=== PATIENT | female | born 1970 | race Caucasian/White ===

== ENCOUNTER → 2016-12-27 | Outpatient (CLI) | payer BC ==
[~2016-12-27] MED LIST: ANUSOL-HC CREAM30 G1 PR; ANUSOL30 G1; AUGMENTIN PO; BACTRIM DS TABL1 TA1 PO; BACTRIM DS TABL1 TA2 PO; BACTRIM DS TABL1 TAB PO; BENTYL20 MG PO; CLEOCIN150 MG DOB; COLESTID1 GM PO; DICYCLOMINE HCL20 MG; DIFLUCAN100 MG PO; EFFEXOR XR; EFFEXOR XR150 MG PO; FERROUS SULFATE PO; FISH OIL 1,2001 EAC3 PO; FISH OIL 10001000 MG PO; GLIPIZIDE10 MG PO; HCTZ PO; HYDROCODON-ACE1 EAC1 PO; IBUPROFEN PO; KEFLEX500 MG PO; LASIX PO; LIPITOR PO; LISINOPRIL20 MG PO; LISINOPRIL30 MG PO; LOMOTIL TABLET1 TAB PO; MEGESTROL ACETA40 MG PO; METFORMIN HCL500 M1 PO; METFORMIN PO; NORCO 10/3251 TAB PO; OMEPRAZOLE40 MG PO; PERCOCET 5-3251 TAB PO; PHENERGAN; PRISTIQ50 MG PO; PROTONIX PO; SALINE WOUND W210 M1 MC; SYNTHROID25 MCG PO; TYLOX1 CAP 5/50 DOB; VICODIN 5/500 T1 TAB; VICTOZA 3-0.6 MG/0.1 SUBQ; VICTOZA0.6 MG/0.1 SQ; VIIBRYD20 MG PO; VITAMIN D PO; VITAMIN D2000 UNIT PO; VITAMIN D310000 UNIT PO; WELCHOL625 MG PO; ZINC SULFATE PO; ZYRTEC-D T1 TAB.SR1; [UNRECOGNIZED DRUG - OTHER] PO
--- NOTE | ~2016-12-27 | MY7 ---
[facility] A Service of [facility] & [facility] RADIOLOGY TEXT RESULTS PATIENT: NOE RAZA LOCATION: [facility] : 68 UNIT #: [id number] AGE: [address]: Rose Marie Mcneal MD SEX: F ORDER DR: [id number] [facility] [address]. [place], [place] [address] [id number] O MR#: [id number] Acc #: [id number] NAME: NOE RAZA. : 1970 SEX: F STUDY DATE/TIME: 12/27/2016 14:43 UNIT: [facility] ROOM: STUDY DESCRIPTION: MY Mammogram Dx Dig Lt Attending Physician: Rose Marie Mcneal M.D. Ordering Physician: Rose Marie Mcneal M.D. Primary Care Physician: Rose Marie Mcneal M.D. MEDICAL IMAGING REPORT This report is preliminary unless electronic signature is present EXAM Left digital diagnostic mammogram COMPARISON Mammograms dated May 03, 2016 February 13, 2015 January 16, 2015 January 11, 2014 December 23, 2012, February 05, 2011 August 30, 2009, August 22, 2009. INDICATION 46-year-old female with a 1 month history of discomfort in the 12 o'clock left breast, associated with a lump. Patient denies personal or family history of breast cancer. FINDINGS The left breast is almost entirely fatty. Triangular marker denotes the area of concern in the 12 o'clock middle third. There is no corresponding mammographic abnormality. There is only benign fat in the region of concern. I personally performed physical exam in the patient's area of concern in the 12 o'clock left breast approximately 12 cm from the nipple, where there is palpable fibroglandular nodularity without suspicious palpable mass. There is no overlying skin change. Sonographic evaluation demonstrated only normal underlying fat. IMPRESSION 1. No mammographic or sonographic evidence of malignancy in the left breast. There is only benign fat in the area of patient concern. Patient was instructed to report any enlargement of this finding to her primary care physician at which time palpation guided biopsy or repeat imaging could be performed if clinically indicated. The patient was also counseled on treatments of breast pain. 2. In the absence of new or worsening complaints, continued annual screening mammography is recommend which is next due in April 2017. [facility] A Service of [facility] RADIOLOGY TEXT RESULTS PATIENT: NOE RAZA LOCATION: [facility] : 68 UNIT #: [id number] AGE: [address]: Rose Marie Mcneal MD SEX: F ORDER DR: Patients over the age of 40 are entered into a reminder system with target due date for the next mammogram. A result letter will also be sent to the patient. Dictated by... Cooper Barrett M.D. ELISA/wen TD: 12/28/2016 05:47 JOB #: [id number] ADDENDUM BIRADS: 1 Negative. Dictated by... Cooper Barrett M.D. THIS IS AN ELECTRONICALLY VERIFIED REPORT Cooper Barrett M.D. at 12/29/2016 7:06 PM Veronique TD: 12/28/2016 06:26 JOB #: [id number] MEDICAL IMAGING REPORT COPY
--- NOTE | ~2016-12-27 | US24 ---
[facility] A Service of [facility] & [facility] RADIOLOGY TEXT RESULTS PATIENT: NOE RAZA LOCATION: [facility] : 68 UNIT #: [id number] AGE: [address]: Rose Marie Mcneal MD SEX: F ORDER DR: [id number] [facility] [address]. [place], [place] [address] [id number] O MR#: [id number] Acc #: [id number] NAME: NOE RAZA. : 1970 SEX: F STUDY DATE/TIME: 12/27/2016 15:09 UNIT: [facility] ROOM: STUDY DESCRIPTION: US Breast Unilateral Attending Physician: Rose Marie Mcneal M.D. Ordering Physician: Rose Marie Mcneal M.D. Primary Care Physician: Rose Marie Mcneal M.D. MEDICAL IMAGING REPORT This report is preliminary unless electronic signature is present EXAM Left breast ultrasound. COMPARISON Left diagnostic mammogram on the same date. INDICATIONS 46-year-old female with 1 month history of 12 o'clock left breast discomfort with an associated lump. Patient has history of multiple breast abscesses. She denies personal or family history breast cancer. FINDINGS AND IMPRESSION Please see separately dictated report of left diagnostic mammography on the same date for full sonographic findings in the left breast today as well as final impression and recommendations. BIRADS: 1 Negative. Dictated by... Cooper Barrett M.D. THIS IS AN ELECTRONICALLY VERIFIED REPORT Cooper Barrett M.D. at 12/29/2016 7:04 PM ELISA/mendez TD: 12/28/2016 06:12 JOB #: [id number] MEDICAL IMAGING REPORT COPY
== END | disposition home or self-care (01) ==
LOC: CMAM 14:22
DX: N64.4 Mastodynia (principal)
CPT/HCPCS: 76641; G0206

== ENCOUNTER → 2017-06-20 | Day surgery (SDC) | payer BC ==
--- NOTE | ~2017-06-20 | OR ---
Unit #: [id number] #: [id number] Patient: NOE RAZA [id number] [address] [place], [place] [address] [id number] O MR#: [id number] NAME: NOE RAZA ROOM: Date of Procedure: 06/20/2017 Admission Date: 06/20/2017 Surgeon: Luis A Wood Jr., M.D. : 1970 Attending Physician: Luis A Wood Jr., M.D. Primary Care Physician: Rose Marie Mcneal M.D. OPERATIVE REPORT INDICATIONS FOR PROCEDURE The patient is a 47-year-old obese white female, who has been having recent abdominal pains especially in the left lower quadrant of her abdomen. She has also had mid epigastric pain with reflux symptoms and may have significant esophagitis. She had a CT scan, which revealed evidence of probably a lipomatous mass versus an occult malignancy in the cecum and it was felt she needed both colonoscopy and EGD. She is brought in this time after prep at home for these procedures. She understands the procedure including the risks, including that of bleeding and perforation, and consents. PREOPERATIVE DIAGNOSES Possible esophagitis, possible occult ulcer disease, possible colitis, possible mass of the cecum. POSTOPERATIVE DIAGNOSES On upper endoscopy, the patient was noted to have no evidence of any esophagitis, but did have evidence of some mild gastritis with red streaks in the antrum. 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 ANESTHESIA MAC anesthesia. PROCEDURE PERFORMED Flexible fiberoptic esophagogastroduodenoscopy with antral biopsy for Helicobacter pylori and flexible colonoscopy to the cecum. DESCRIPTION OF PROCEDURE The patient was positioned in Stringer position with left side down. After being given MAC anesthesia, the Olympus XQ scope was passed through the proximal esophagus. Entire esophagus was examined. Proximal two-thirds appeared normal. In the area of the GE junction, there was no evidence of any stenosis. No evidence of any significant esophagitis. The scope was advanced through the GE junction and the cardia, and down to the fundic and antral region of the stomach and retroflexed back up to the area of the cardia, there was no obvious hiatal hernia present. The stomach distended well without evidence of rigidity. No evidence of any gastric ulcer disease. There were areas of reddish streaks in the antrum compatible with atrophic gastritis. A biopsy was taken from the antrum Unit #: [id number] #: [id number] Patient: NOE RAZA for H pylori without significant bleeding. The scope was advanced through the pylorus and duodenal bulb and down to the second portion of the duodenum. The entire duodenal portion examination was within normal limits. The scope was slowly removed. The patient repositioned for colonoscopy. Digital rectal examination was performed, which revealed no palpable mass or tenderness. No blood or stool in the rectal ampulla. The Olympus colonoscope was advanced through the anal canal up the rectum and retroflexed down to the area of the anorectal region. There was no evidence of any fissures. No significant internal hemorrhoids. The scope was then straightened and advanced up in the rectosigmoid, in the sigmoid and descending colon areas, around the splenic flexure and the transverse colon, around hepatic flexure and ascending colon, down in the area of the cecum. The light from the tip of the scope could be seen transilluminating through right lower quadrant abdominal wall area. Multiple attempts in advancing the scope up the distal ileum were unsuccessful. There was a lipomatous mass approximately 2.5 to 3 cm in diameter in the area of the ileocecal valve, which could possibly be part of the valve itself. There were no evidence of any ulceration and no evidence of any other specific abnormalities in the area. The scope was slowly removed. Except for a lipomatous mass, there were no other tumors, no cancer, no AVMs, no evidence of any colitis, diverticulosis, or diverticulitis. The caliber of the colon appeared normal throughout. The scope was removed. The patient tolerated the procedure well and discharged in satisfactory condition. Dictated by... Luis A Wood Jr., M.D. JMB/sophia TD: 06/20/2017 19:22 JOB #: [id number] CC: Rose Marie Mcneal M.D. OPERATIVE REPORT Page 1 of 1 X Luis A Wood MD PROCEDURE OPERATIVE NOTE
== END | disposition home or self-care (01) ==
LOC: COPS 10:10
DX: K29.70 Gastritis, unspecified, without bleeding (principal); D17.79 Benign lipomatous neoplasm of other sites; D64.9 Anemia, unspecified; I10 Essential (primary) hypertension; E11.9 Type 2 diabetes mellitus without complications; E78.5 Hyperlipidemia, unspecified; E03.9 Hypothyroidism, unspecified; E66.01 Morbid (severe) obesity due to excess calories; M19.90 Unspecified osteoarthritis, unspecified site; Z68.43 Body mass index [BMI] 50.0-59.9, adult; Z87.891 Personal history of nicotine dependence; Z88.8 Allergy status to other drugs, medicaments and biological substances; Z79.899 Other long term (current) drug therapy
CPT/HCPCS: 82947; 87077; J1335